=== PATIENT | male | born 1970 | race Caucasian/White ===

== ENCOUNTER 2025-06-26 04:50 | Emergency (ER) | payer SELFPAY ==
[2025-06-26] MEDS: Diphtheria,Pertussis(Acell),Tetanus Vaccine 0.5 ML Syringe IM ONE (05:27)
[2025-06-26] MEDS: ceFAZolin 1 GM in Water For Injection, Sterile 10 ML IVPUSH ONE (05:28)
[2025-06-26] MEDS: Bacitracin Oint 1 GM U/D Packet TOP ONE (05:49)
[2025-06-26] MEDS: Acetaminophen/HYDROcodone 325-5 MG Tab PO ONE (05:49)
== END 2025-06-26 06:04 | disposition home or self-care (01) ==
LOC: MW.ED 04:50
DX: S61.302A Unspecified open wound of right middle finger with damage to nail, initial encounter (principal); Z23 Encounter for immunization; W20.8XXA Other cause of strike by thrown, projected or falling object, initial encounter
CPT/HCPCS: 11730; 73140; 90471; 90715; 96374; 99283; A9270; J0665; J0690; 12001; 99284